=== PATIENT | female | born 1955 | race Caucasian/White ===

== ENCOUNTER → 2025-02-05 13:47 | Outpatient (REF) | payer MEDICARE, OTHER, SELFPAY | LOC: RAD 13:47 | PROVIDERS: ATTENDING PHYSICIAN Physician Assistant | DX: Z13.820 Encounter for screening for osteoporosis (principal); M81.0 Age-related osteoporosis without current pathological fracture | CPT/HCPCS: 77080 ==

== ENCOUNTER → 2025-03-18 12:42 | Outpatient (REF) | payer MEDICARE, OTHER, SELFPAY | LOC: HWRAD 12:42 | PROVIDERS: ATTENDING PHYSICIAN Physician Assistant | DX: E78.00 Pure hypercholesterolemia, unspecified (principal) | CPT/HCPCS: 75571 ==